=== PATIENT | male | born 1955 | race Two or more races ===

== ENCOUNTER 2023-03-13 07:12 | Day surgery (SDC) | payer OTHER ==
[~2023-03-13] VITALS: Ht 190.5 cm; Wt 113.4 kg
[~2023-03-13 07:12] MED LIST: AMIO100T3 OR; AMLO1TAB22 PO; APIX5TAB PO; GABA-1250 PO; GLAT40IN SC; OMEP20TA PO; SIMV20TA20 PO
[2023-03-13] MEDS ORDERED: MIDAZOLAM HCL 2MG/2ML 2ml VIAL (1mg/ml) IV ONE (07:45)
[2023-03-13] MEDS ORDERED: LIDOCAINE VISCOUS 2% 15ML UD PO ONE (07:45)
[2023-03-13] MEDS ORDERED: fentaNYL CITRATE 100 MCG/2 ML VL IV ONE (07:45)
[2023-03-13] MEDS ORDERED: diphenhdrAMINE HCL 50 MG/1 ML VL IV ONE (07:45)
[2023-03-13 09:11] VITALS: BP 118/67
[2023-03-13 09:25] VITALS: BP 114/71
[2023-03-13 09:40] VITALS: BP 117/71
[2023-03-13 09:52] VITALS: BP 126/80
== END 2023-03-13 10:02 | disposition home or self-care (01) ==
LOC: CATH 07:12
PROVIDERS: ATTEND Internal Medicine
DX: I48.19 Other persistent atrial fibrillation (principal); I10 Essential (primary) hypertension; G45.9 Transient cerebral ischemic attack, unspecified; Z79.82 Long term (current) use of aspirin; Z79.899 Other long term (current) drug therapy
CPT/HCPCS: 92960; 93005; 93312; J1200; J2250; J3010; 99152